=== PATIENT | male | born 1975 | race Caucasian/White ===

== ENCOUNTER 2019-12-08 16:49 | Emergency (ER) | payer OTHER, SELFPAY ==
[2019-12-08 17:48] VITALS: BP 121/77; PULSE 96; RESP 16; TEMP 36.7; O2SAT 98; BMI 27.1
--- NOTE | 2019-12-08 17:50 | ED_ITS ---
HPI - Wound/Laceration General Chief Complaint: Wound/Laceration Stated Complaint: WOUND Time Seen by Provider: 12/08/19 17:49 Source: patient Mode of arrival: ambulatory Limitations: no limitations History of Present Illness HPI narrative: punctured with mar nail Onset (ago): day(s) Location: other (4th digit right hand) Related Data Previous Rx's Medication Instructions Recorded cephalexin [Keflex] 500 mg PO QID #20 cap 12/08/19 Allergies Allergy/AdvReac Type Severity Reaction Status Date / Time glipizide [GLIPIZIDE] Allergy Unknown RASH Unverified 11/01/19 17:02 glyburide [GLYBURIDE] Allergy Unknown RASH Unverified 11/01/19 17:02 Review of Systems Constitutional: Constitutional: Reports no additional constitutional complaints Eyes: Eyes: Reports no additional eye complaints ENT: Denies dizziness Cardiovascular: Cardiovascular: Reports no additional cardiovascular complaints Respiratory: Respiratory: Reports as per HPI Gastrointestinal: Gastrointestinal: Reports no additional gastrointestinal complaints Musculoskeletal: Musculoskeletal: Reports no additional musculoskeletal comp laints Integumentary/Breasts: Skin/Breast: Denies rash Neurologic: Reports system reviewed and no additional complaints, except as documented, Denies dizziness and Denies Sensory deficit (Neuro) Psychiatric: Psychiatric: Denies anxiety PENDING SALE TO [facility] Past Medical History Medical History (Updated 12/08/19 @ 17:57 by Anthony Partida MD) Diabetic acidosis, type II Social History Social History Alcohol intake: never Smoked in Last 30 Days: No Use of substances other than those prescribed or required for medical reasons: No Physical Exam Vital Signs: Vital Signs: Vital Signs Temp Pulse Resp BP Pulse Ox 12/08/19 17:48 98.1 F 96 16 121/77 98 Body Mass Index 27.1 Const: General: healthy appearing Nutritional Appearance: average body habitus Orientation/consciousness: oriented to person and patient oriented x3 Limitations: no limitations HENMT: Head: Yes normal to inspection Ears: external ears normal General nose exam: Normal external nose present Mouth: Normal oral and palatal mucosa present and oropharynx normal Throat: Yes posterior oropharynx normal Eyes: General: appearance normal, both eyes and all related structures Neck: Other: supple Neck: Yes normal visual inspection Chest: Chest palpation & inspection: normal inspection of the chest Resp: Auscultation: clear to auscultation bilaterally Cardio: Jugular venous distension: no JVD Rate: regular rate Rhythm: regular rhythm Heart sounds: S1 normal heart sound present and S2 normal heart sound present GI: Inspection: Yes normal to inspection Palpation (GI): Soft to palpation, nontender and No hepatosplenomegaly present Auscultation: normal bowel sounds : General: Yes no CVA tenderness Back/Spine/Pelvis: Back: no CVA tenderness Skin: Other: small puncture to 4th digig General skin exam: no rashes or lesions noted Neuro: General: oriented to person and patient oriented x3 Cranial nerves: Yes CN's II-XII intact bilaterally Motor exam (neuro): 5/5 motor strength present throughout Sensory Exam: No Sensory deficit (Neuro) Extrem: General: Yes normal to inspection Psych: Appearance: grossly normal Course Course Course Narrative: will give boostrix and keflex as patient is a diabetic Discharge Plan Discharge Clinical Impression: Puncture wound Patient Disposition: Home, Self-Care Instructions: Puncture Wound (ED) Prescriptions: New cephalexin [Keflex] 500 mg capsule 500 mg PO QID Qty: 20 RF: 0 Referrals: Farshad Frank MD [Primary Care Provider] - 2 days
--- NOTE | 2019-12-08 18:32 | PC.NURSE ---
PT REFUSED DOSE OF KEFLEX HE DOES NOT WANT TO PAY FOR MEDICATION HE WANT TO WAIT TO SEE IF IT GET INFECTED. I SPOKE TO PT ABOUT THE RISK AND BENEFITS OF ANTIBIOTIC A DIABETIC AND ALSO TALK TO HIM ABOUT TAKING PROBIOTIC WHILE ON ANTIBIOTICS. PT STATES HE WILL SPEAK TO HIS SISTER WHO IS A NURSE AND HE WILL TAKE PRESCRIPTION IF SHE TELL HIM TO.
== END 2019-12-08 18:40 | disposition home or self-care (01) ==
LOC: HO.ED 18:03
PROVIDERS: Emergency Provider Emergency Medicine; PCP Internal Medicine
DX: S61.431A Puncture wound without foreign body of right hand, initial encounter (principal); S60.511A Abrasion of right hand, initial encounter; M79.641 Pain in right hand; W45.0XXA Nail entering through skin, initial encounter; Y93.9 Activity, unspecified; Y92.9 Unspecified place or not applicable; Y99.9 Unspecified external cause status; Z23 Encounter for immunization
CPT/HCPCS: 90471; 90715; 99284